=== PATIENT | male | born 1995 | race Caucasian/White ===

== ENCOUNTER 2019-03-30 10:41 | Emergency (ER) | payer BC ==
[2019-03-30] MEDS ORDERED: HYDR-2155 PO (10:54)
--- NOTE | 2019-03-30 11:00 | PHYS DOC ---
Past History Past Medical History: No Pertinent History Past Surgical History: No Surgical History Smoking: Cigarettes Alcohol Use: Occasionally Drug Use: None Adult General Chief Complaint Chief Complaint: SHOULDER INJURY HPI HPI Patient is a 23-year-old male presents complaining of left shoulder and collarb one pain. He initially injured it this weekend and was seen at [facility] where he was diagnosed with a clavicle fracture and the "fixed the bump." And gave him a sling. This morning he tripped and fell going upstairs. He put his 2 hands outward to catch himself from falling and reinjured the shoulder. Increased pain with movement. This most recent injury happened approximately 2-3 hours prior to arrival. He took 2 of the previously prescribed hydrocodone tablets without any significant improvement in the discomfort. Increased pain with movement. Pain is moderate to severe in intensity. No radiation of the discomfort.[] Review of Systems Review of Systems Constitutional: Denies fever or chills [] Eyes: Denies change in visual acuity, redness, or eye pain [] HENT: Denies nasal congestion or sore throat [] Respiratory: Denies cough or shortness of breath [] Cardiovascular: No chest pain or palpitations[] GI: Denies abdominal pain, nausea, vomiting, bloody stools or diarrhea [] : Denies dysuria or hematuria [] Musculoskeletal: Denies back pain, see history of present illness[] Integument: Denies rash or skin lesions [] Neurologic: Denies headache, focal weakness or sensory changes [] Endocrine: Denies polyuria or polydipsia [] All other systems were reviewed and found to be within normal limits, except as documented in this note. Physical Exam Physical Exam Constitutional: Well developed, well nourished, mild discomfort, non-toxic appearance. [] HENT: Normocephalic, atraumatic, bilateral external ears normal, oropharynx moist, no oral exudates, nose normal. [] Eyes: PERRLA, EOMI, conjunctiva normal, no discharge. [] Neck: Normal range of motion, no tenderness, supple, no stridor. [] Cardiovascular:Heart rate regular rhythm, no murmur [] Lungs & Thorax: Bilateral breath sounds clear to auscultation [] Abdomen: Bowel sounds normal, soft, no tenderness, no masses, no pulsatile masses. [] Skin: Warm, dry, no erythema, no rash. [] Back: No tenderness, no CVA tenderness. [] Extremities: Left shoulder: There is tenderness and a lump noted in the distal one third of the left clavicle, there is no pale skin. Limited active range of motion of the shoulder secondary to pain at the clavicle. No elbow tenderness. Patient is distally neurovascularly intact. The other 3 extremities show: No tenderness, no cyanosis, no clubbing, ROM intact, no edema. [] Neurologic: Alert and oriented X 3, normal motor function, normal sensory function, no focal deficits noted. [] Psychologic: Affect normal, judgement normal, mood normal. [] EKG EKG [] Radiology/Procedures Radiology/Procedures Left shoulder and clavicle x-rays show a distal one third clavicle fracture with angulation. There is no shoulder dislocation.[] Course & Med Decision Making Course & Med Decision Making Pertinent Labs and Imaging studies reviewed. (See chart for details) ED course: Patient arrived, was placed in bed, and tolerated exam well. After the return of the imaging findings, discussed these with the on-call orthopedic surgeon. Recommendation was for sling, pain management, and follow up with or so for evaluation for closed versus operative intervention. No urgent operative intervention is necessary at this time. Discussed findings and plan with patient who voiced understanding. All questions were answered. He was placed in a sling. He was distally neurovascularly intact after sling application. Medical decision making: Patient appears to have a closed fracture of the left distal one third of the clavicle without any evidence of open injury, no evidence of vascular compromise to the skin overlying the "lump". No evidence of a shoulder dislocation. No evidence of neuro or vascular compromise.[] Dragon Disclaimer Dragon Disclaimer This electronic medical record was generated, in whole or in part, using a voice recognition dictation system. Departure Departure: Impression: Primary Impression: Closed left clavicular fracture Disposition: 01 HOME, SELF-CARE Condition: IMPROVED Referrals: PCP,PATRICIA (PCP) ADAN HERNANDEZ MD Call today to set follow-up appointment Patient Instructions: Clavicle Fracture (Shaft) with Rehab-SportsMed, Sling Use After Injury or Surgery Additional Instructions: Follow-up with your regular doctor or orthopedic surgeon, Dr. Hernandez. Call today to set follow-up appointment. Return to the ER if worsening pain, weakness, or a ny other concerns. Scripts Hydrocodone Bit/Acetaminophen (NORCO 5-325 TABLET) 1 Each Tablet 1 TAB PO Q4-6HRS for severe pain, #20 TAB Prov: AURORA MACHADO DO 03/30/19 Meloxicam (MELOXICAM) 7.5 Mg Tablet 7.5 MG PO DAILY for PAIN, #20 TAB Prov: AURORA MACHADO DO 03/30/19 Problem Qualifiers Primary Impression: Closed left clavicular fracture Encounter type: initial encounter Clavicle location: shaft Fracture alignment: displaced Qualified Codes: S42.022A - Displaced fracture of shaft of left clavicle, initial encounter for closed fracture AURORA MACHADO DO Mar 30, 2019 11:00
[2019-03-30] MEDS ORDERED: HYDR-3165 PO (11:28)
[2019-03-30] MEDS ORDERED: MELO7.5T29 PO (11:28)
--- NOTE | 2019-03-30 11:33 | RAD ---
SHOULDER 2+V LEFT, CLAVICLE LEFT History: Trauma. Left clavicle and shoulder pain. Technique: 3 views left shoulder and 2 views left clavicle. Comparison: None. Findings: Comminuted displaced left midclavicular fracture with inferior displacement and angulation of the distal fracture fragments. 2 cm displacement. Normal alignment of the glenohumeral and acromioclavicular joints. Impression: 1. Comminuted displaced left mid to distal clavicular fracture. Electronically signed by: Mart Lewis DO (03/30/2019 11:30 AM) [id number]
[2019-03-30 11:37] VITALS: BP 119/75
== END 2019-03-30 11:38 | disposition home or self-care (01) ==
LOC: ER 10:41
DX: S42.032A Displaced fracture of lateral end of left clavicle, initial encounter for closed fracture (principal); F17.210 Nicotine dependence, cigarettes, uncomplicated; W18.39XA Other fall on same level, initial encounter; Y93.89 Activity, other specified; Y92.89 Other specified places as the place of occurrence of the external cause; Y99.8 Other external cause status
CPT/HCPCS: 73000; 73030; 99284